=== PATIENT | male | born 1995 | race Caucasian/White ===

== ENCOUNTER 2018-08-27 10:03 | Emergency (ER) | payer OTHER ==
[2018-08-27 11:01] VITALS: BP 109/74; PULSE 81; TEMP 97.5; BMI 23.1
--- NOTE | 2018-08-27 11:34 | PDOC ---
History of Present Illness - General Chief Complaint: Substance Abuse Stated Complaint: DETOX SCREENING Time Seen by Provider: 08/27/18 11:26 History Source: Patient, Parent(s) - History of Present Illness Associated Symptoms: denies: chest pain, cough, diaphoresis, fever/chills, headaches, malaise, nausea/vomiting, shortness of breath, weakness Past History - Past Medical History Allergies/Adverse Reactions: Allergies Allergy/AdvReac Type Severity Reaction Status Date / Time No Known Allergies Allergy Verified 08/27/18 10:57 COPD: No - Suicide/Smoking/Psychosocial Hx Smoking History: Current every day smoker Information on smoking cessation initiated: No Review of Systems - Review of Systems Constitutional: No: Chills, Fever Respiratory: No: Cough, Shortness of Breath Cardiac (ROS): No: Chest Pain ABD/GI: No: Constipated, Diarrhea, Nausea, Vomiting, Abdominal cramping : No: Dysuria, Hematuria Neurological: No: Headache, Dizziness *Physical Exam - Vital Signs Last Vital Signs Temp Pulse Resp BP Pulse Ox 97.5 F L 81 18 109/74 98 08/27/18 10:58 08/27/18 10:58 08/27/18 10:58 08/27/18 10:58 08/27/18 10:58 - Physical Exam General Appearance: Yes: Appropriately Dressed. No: Apparent Distress HEENT: positive: Normal Voice Neck: positive: Supple Respiratory/Chest: positive: Lungs Clear, Normal Breath Sounds. negative: Respiratory Distress Cardiovascular: positive: Regular Rate, S1, S2 Gastrointestinal/Abdominal: positive: Soft. negative: Tender Integumentary: positive: Dry, Warm Neurologic: positive: Fully Oriented, Alert, Normal Mood/Affect ED Treatment Course - LABORATORY CBC & Chemistry Diagram: 08/27/18 11:39 08/27/18 11:39 Medical Decision Making - Medical Decision Making 08/27/18 11:27 23 yo M w/ h/o polysubstance abuse, BIB parents for medical clearance prior to out-pt detox at [facility]. Pt admits to ETOH/marijuana/cocaine and street xanax 2 days ago. Denies any med complaints at this time. No SI/.HI. No known psych hx. pt well sophie and stable. Will send basic labs/utox and dc w/ copy of results 08/27/18 12:37 Utox + for marijuana/cocaine/benzo. Pt and parents discharged w/ copy of labs *DC/Admit/Observation/Transfer Diagnosis at time of Disposition: Polysubstance abuse - Discharge Dispostion Disposition: HOME Condition at time of disposition: Stable - Referrals Referrals: Catalina Cardozo MD [Primary Care Provider] - - Patient Instructions Printed Discharge Instructions: Getting Treatment for Drug Addiction Additional Instructions: You presented to our facility for medical clearance prior to outpatient detox/ rehabilitation. You were given a copy of all your lab to follow up - Post Discharge Activity
[2018-08-27 11:56] LABS: BASO % 0.4 % (0-2.0); EOS % 0.7 % (0-4.5); HEMOGLOBIN 16.6 GM/dL (11.7-16.9); LYMPH % 15.6 % (8-40); MCH 30.6 pg (25.7-33.7); MCHC 33.8 g/dl (32.0-35.9); MEAN CELL VOLUME 90.6 fl (80-96); MEAN PLT VOLUME 8.5 fl (7.5-11.1); MONO % 9.2 % (3.8-10.2); NEUT % 74.1 % (42.8-82.8); PLATELET COUNT 210 K/MM3 (134-434); RBC 5.41 M/mm3 (4.00-5.60); RDW 13.3 % (11.9-15.9); WHITE BLOOD COUNT 8.3 K/mm3 (4.0-10.0)
[2018-08-27 12:05] LABS: INR 1.14 (0.83-1.09); PROTHROMBIN TIME (PATIENT) 13.5 SEC (9.7-13.0)
[2018-08-27 12:06] LABS: METHADONE, UR NEGATIVE ng/ml (CUTOFF=300); OPIATES, URI NEGATIVE ng/ml (CUTOFF=300); PHENCYCLIDINE,URINE NEGATIVE ng/ml (CUTOFF=25); URINE AMPHETAMINES NEGATIVE ng/ml (CUTOFF=500); URINE BARBITURATES NEGATIVE ng/ml (CUTOFF=200)
[2018-08-27 12:13] LABS: COCAINE, UR POSITIVE ng/ml (CUTOFF=300); URINE BENZODIAZEPINES POSITIVE ng/ml (CUTOFF=200)
[2018-08-27 12:31] LABS: ALBUMIN 4.4 g/dl (3.4-5.0); BILIRUBIN,TOTAL 0.9 mg/dL (0.2-1); CALCIUM 9.1 mg/dL (8.5-10.1); POTASSIUM 4.7 mmol/L (3.5-5.1); TOT PROT 7.6 g/dl (6.4-8.2)
== END 2018-08-27 12:50 | disposition home or self-care (01) ==
LOC: JER 10:03
DX: Z02.83 Encounter for blood-alcohol and blood-drug test (principal); F19.10 Other psychoactive substance abuse, uncomplicated
CPT/HCPCS: 36415; 80053; 80307; 83690; 85025; 85610; 99281-25